=== PATIENT | female | born 1970 | race Two or more races ===

== ENCOUNTER → 2016-07-31 | Outpatient (CLI) | payer OTHER ==
--- NOTE | ~2016-07-31 | MY29 ---
[facility] A Service of [facility] RADIOLOGY TEXT RESULTS PATIENT: THOMAS OLMOS LOCATION: [facility] : 72 UNIT #: [id number] AGE: [address]: Gustavo Escudero MD SEX: F ORDER DR: [id number] [facility] [address] [place], [place] [address] [id number] O MR#: [id number] Acc #: [id number] NAME: THOMAS OLMOS : 1970 SEX: F STUDY DATE/TIME: 07/31/2016 10:29 UNIT: [facility] ROOM: STUDY DESCRIPTION: MY VICTORINA SCREENING W/ CAD BILAT Attending Physician: Gustavo Escudero M.D. Ordering Physician: Gustavo Escudero M.D. Primary Care Physician: Gustavo Escudero M.D. MEDICAL IMAGING REPORT This report is preliminary unless electronic signature is present EXAM Digital screening mammogram 07/31/2016 [facility]. HISTORY 46-year-old woman. No risk elevation. Annual screen. COMPARISON 07/03/2015. FINDINGS Digital imaging of each breast was completed utilizing screening protocol. Review includes FDA-approved CAD device. Breast parenchyma is heterogeneous with scattered fibroglandular opacities again noted in each breast. There is a focal area of stellate distortion projecting in the subareolar region of the left breast. This projects slightly medial and superior, upper inner anterior third left breast. Characteristics are certainly consistent with a radial scar; however, further characterization is recommended to include spot compression views with breast tomosynthesis. Right breast remains negative at this time. IMPRESSION Incomplete mammographic evaluation. Additional left breast imaging is indicated to include high-resolution spot compression views with breast tomosynthesis. This can be performed at [facility]. Please let me know if I can discuss recommendations with you. Patients over the age of 40 are entered into a reminder system with target due date for the next mammogram. BIRADS: 0 Incomplete, needs additional left breast imaging evaluate and/or prior mammograms for comparison. [facility] A Service of [facility] RADIOLOGY TEXT RESULTS PATIENT: THOMAS OLMOS LOCATION: [facility] : 72 UNIT #: [id number] AGE: [address]: Gustavo Escudero MD SEX: F ORDER DR: Dictated by... Cisco Anna M.D. THIS IS AN ELECTRONICALLY VERIFIED REPORT Cisco Anna M.D. at 07/31/2016 3:17 PM David TD: 07/31/2016 13:43 JOB #: [id number] MEDICAL IMAGING REPORT Page 1 of 1 COPY
== END | disposition home or self-care (01) ==
LOC: CWCC 09:58
DX: Z12.31 Encounter for screening mammogram for malignant neoplasm of breast (principal); R92.8 Other abnormal and inconclusive findings on diagnostic imaging of breast
CPT/HCPCS: G0202

== ENCOUNTER 2016-08-24 20:23 | Emergency (ER) | payer OTHER ==
[~2016-08-24] VITALS: Ht 165.1 cm; Wt 129.3 kg
--- NOTE | ~2016-08-24 | CR72 ---
[facility] A Service of [facility] RADIOLOGY TEXT RESULTS PATIENT: THOMAS OLMOS LOCATION: [facility] : 72 UNIT #: [id number] AGE: [address]: Raul Donnelly MD SEX: F ORDER DR: [id number] [facility] [address] [place], [place] [address] [id number] E MR#: [id number] Acc #: [id number] NAME: THOMAS OLMOS : 1970 SEX: F STUDY DATE/TIME: 08/24/2016 23:45 UNIT: [facility] ROOM: STUDY DESCRIPTION: CR Chest Single View Portable Attending Physician: Raul Donnelly M.D. Ordering Physician: Raul Donnelly M.D. Primary Care Physician: Gustavo Escudero M.D. MEDICAL IMAGING REPORT This report is preliminary unless electronic signature is present EXAM Portable chest INDICATIONS Cough today. PROCEDURE Frontal view chest. COMPARISON STUDIES None. FINDINGS Upper limits of normal to mildly enlarged heart size. No dense consolidation pleural fluid or pneumothorax. IMPRESSION No active process Dictated by... Valerio Vera M.D. THIS IS AN ELECTRONICALLY VERIFIED REPORT Valerio Vera M.D. at 08/25/2016 10:24 PM Tian TD: 08/25/2016 07:09 JOB #: [id number] MEDICAL IMAGING REPORT Page 1 of 1 COPY
[2016-08-24 20:47] LABS: URINE SOURCE CLEAN CATCH
[2016-08-24 20:51] LABS: URINE APPEARANCE CLEAR; URINE BILIRUBIN NEG (NEG); URINE BLOOD NEG (NEG); URINE COLOR YELLOW; URINE GLUCOSE NEG (NEG); URINE KETONE NEG (NEG); URINE LEUKOCYTE ESTERASE NEG (NEG); URINE NITRATE NEG (NEG); URINE PROTEIN NEG (NEG); URINE SPECIFIC GRAVITY 1.016 (1.003-1.035); URINE UROBILINOGEN 0.2 MG/DL (NEG)
[2016-08-24 20:57] LABS: CULTURE INDICATED? NO
[2016-08-25] LABS: BASOPHIL% 0.6 % (0-2.5); EOSINOPHIL# 0.2 X10e3 (0-0.7); HEMOGLOBIN 12.7 gm/dL (12.0-16.0); LYMPHOCYTE# 2.2 X10e3 (1.0-3.5); LYMPHOCYTE% 33.1 % (17.0-45.0); MEAN CELL VOLUME 83.3 FL (83-96); MEAN CORPUSCULAR HGB CONC 32.5 g/dL (30-36); MEAN PLATELET VOLUME 9.7 FL (6.5-11.5); MONOCYTE# 0.4 X10e3 (0-1.0); MONOCYTE% 5.5 % (3.0-12.0); NEUTROPHIL# 3.8 X10e3 (1.5-7.1); NEUTROPHIL% 57.8 % (40-75); PLATELET COUNT 227 X10e3 (140-420); RED BLOOD COUNT 4.68 X10e (3.90-5.30); RED CELL DISTRIBUTION WIDTH 13.2 % (11.0-15.5); WHITE BLOOD COUNT 6.6 X10e3 (4.0-10.5)
[2016-08-25 00:01] LABS: DIFF IND NO
[2016-08-25 00:23] LABS: ALBUMIN SERUM 3.7 g/dL (3.5-5.0); BILIRUBIN, DIRECT 0.1 mg/dL (0.0-0.2); BILIRUBIN,INDIRECT 0.7 mg/dL (0.0-0.9); BILIRUBIN,TOTAL 0.8 mg/dL (0.2-2.0); CALCIUM SERUM 8.5 mg/dL (8.4-10.2); CREATININE SERUM 0.3 mg/dL (0.6-1.4); GLOM FILT RATE Estimated 138.3 mL/min (>60); POTASSIUM 3.4 mmol/L (3.5-5.1); PROTEIN TOTAL SERUM 7.6 g/dL (6.0-8.3)
== END 2016-08-25 01:00 | disposition home or self-care (01) ==
LOC: CED 20:23
DX: R10.84 Generalized abdominal pain (principal); R11.2 Nausea with vomiting, unspecified; R19.7 Diarrhea, unspecified; E11.9 Type 2 diabetes mellitus without complications; I10 Essential (primary) hypertension
CPT/HCPCS: 71010; 80048; 80076; 81003; 82150; 83690; 85025; 96361; 96374; 96375; 99284; J1200; J2765

== ENCOUNTER → 2016-10-31 | Outpatient (CLI) | payer OTHER ==
--- NOTE | ~2016-10-31 | MY24 ---
[facility] A Service of [facility] RADIOLOGY TEXT RESULTS PATIENT: ESTEE OLMOS LOCATION: [facility] : 72 UNIT #: [id number] AGE: [address]: Gustavo Escudero MD SEX: F ORDER DR: [id number] [facility] [address] [place], [place] [address] [id number] O MR#: [id number] Acc #: [id number] NAME: ESTEE OLMOS : 1970 SEX: F STUDY DATE/TIME: 10/31/2016 12:56 UNIT: [facility] ROOM: STUDY DESCRIPTION: LUÍS HENRIQUEZ W/ CAD UNI LT Attending Physician: Gustavo Escudero M.D. Referring Physician: Gustavo Escudero M.D. Ordering Physician: Gustavo Escudero M.D. Primary Care Physician: Gustavo Escudero M.D. MEDICAL IMAGING REPORT This report is preliminary unless electronic signature is present EXAM Left digital diagnostic mammogram. INDICATIONS Left breast asymmetry on screening mammogram. PROCEDURE True lateral view of the left breast. Spot compression views left breast CC and MLO projections obtained on a digital mammography unit. COMPARISON Previous screening mammograms, 07/31/2016 and 07/03/2015. FINDINGS Area of somewhat radial architectural distortion in the anterior upper inner quadrant of the left breast persists on spot compression. No clearly defined mass is seen. This appearance is unchanged dating back to the 07/03/2015 study. There is no associated microcalcification. Scattered fibroglandular density. Targeted left breast ultrasound shows no suspicious sonographic abnormality. There is a small lipoma in the left breast at the 10 o'clock position that measures approximately 3 mm and a small benign 3 mm cyst in the left breast at the 11 o'clock position. IMPRESSION 1. Persistent, somewhat radial appearing architectural distortion upper/inner quadrant left breast with no clearly associated mass. Appearance is unchanged compared with 07/03/2015, and a benign process is favored. Recommend patient return for a 6-month followup left diagnostic mammogram to document persistent stability. 2. BIRADS 3F6. [facility] A Service of [facility] RADIOLOGY TEXT RESULTS PATIENT: ESTEE OLMOS LOCATION: [facility] #: [id number] : 72 UNIT #: [id number] AGE: [address]: Gustavo Escudero MD SEX: F ORDER DR: Patients over the age of 40 are entered into a reminder system with target due date for the next mammogram. A result letter will also be sent to the patient. BIRADS: 3 Probably benign finding; short interval followup suggested. Dictated by... Valerio Vera M.D. THIS IS AN ELECTRONICALLY VERIFIED REPORT Valerio Vera M.D. at 11/01/2016 2:39 PM AUSTIN/guanakito TD: 10/31/2016 19:23 JOB #: [id number] MEDICAL IMAGING REPORT Page 1 of 1 COPY
--- NOTE | ~2016-10-31 | US24 ---
[facility] A Service of [facility] RADIOLOGY TEXT RESULTS PATIENT: ESTEE OLMOS LOCATION: [facility] : 72 UNIT #: [id number] AGE: [address]: Gustavo Escudero MD SEX: F ORDER DR: [id number] [facility] [address] [place], [place] [address] [id number] O MR#: [id number] Acc #: [id number] NAME: ESTEE OLMOS : 1970 SEX: F STUDY DATE/TIME: 10/31/2016 13:25 UNIT: [facility] ROOM: STUDY DESCRIPTION: US Breast Unilateral Attending Physician: Gustavo Escudero M.D. Referring Physician: Gustavo Escudero M.D. Ordering Physician: Gustavo Escudero M.D. Primary Care Physician: Gustavo Escudero M.D. MEDICAL IMAGING REPORT This report is preliminary unless electronic signature is present EXAM Left breast ultrasound INDICATIONS Focal asymmetry in the left breast on screening mammogram PROCEDURE Webster-scale and Doppler imaging of the left breast in the area of mammographic concern. COMPARISON Concurrently performed diagnostic mammogram. FINDINGS/IMPRESSION Refer to the separately dictated diagnostic mammogram for workup, findings and recommendations. BIRADS: 3 Probably benign finding, short interval follow up suggested. F6 Dictated by... Valerio Vera M.D. THIS IS AN ELECTRONICALLY VERIFIED REPORT Valerio Vera M.D. at 11/01/2016 2:37 PM EED/to TD: 10/31/2016 21:05 JOB #: [id number] MEDICAL IMAGING REPORT Page 1 of 1 COPY
== END | disposition home or self-care (01) ==
LOC: CMAM 12:30
DX: R92.8 Other abnormal and inconclusive findings on diagnostic imaging of breast (principal); N64.89 Other specified disorders of breast
CPT/HCPCS: 76641; G0206